=== PATIENT | female | born 1995 | race Caucasian/White ===

== ENCOUNTER 2025-03-02 09:25 | Outpatient (REF) | payer MEDICAID, SELFPAY ==
--- NOTE | ~2025-03-02 | XR_ITS ---
EXAMINATION: XR SHOULDER, RIGHT CLINICAL INFORMATION: pain, chronic COMPARISON: None available. TECHNIQUE: AP external rotation, Grashey, scapular Y, and axillary views of the right shoulder. FINDINGS: Normal bone mineralization. No fracture, dislocation, or suspicious bone lesion. Normal alignment. The glenohumeral joint is normal. The AC joint demonstrates mild superior surface spurring. There is a type 2 acromion. No undersurface spurring. The subacromial space is preserved. Remainder of the soft tissue and bony structures appear normal. XR/XR shoulder RT min 2V IMPRESSION: 1. Mild AC joint arthritis. Otherwise normal exam. Electronically signed by: Pritesh Aguilera MD 03/02/2025 10:47 AM EDT
--- OUTSIDE RECORDS SUMMARY | 2025-03-02 09:47 | XMS_ITS | Clinical Summary ---
Author Organization [facility] ity Address [address] [place] [address] Care Team Providers Care [employer] Name Role Phone Unavailable Primary Care Provider Unavailabl e Surgical History Surgery Date Site/Laterality Comments OTHER SURGICAL HISTORY PROCEDURE: DENIES PREVIOUS SURGERY OTHER SURGICAL HISTORY PROCEDURE: DENIES PREVIOUS SURGERY Medical History Medical History Date Comments Obesity 01/27/2014 DX:Obesity Family History Medical History Relation Name Comments Leukemia Maternal Grandfather Liver cancer Maternal Grandmother Other cancer Maternal Grandmother liver Leukemia Paternal Grandfather Leukemia Paternal Grandmother Other cancer Paternal Grandmother leukemi a Breast cancer Neg Hx Colon cancer Neg Hx Ovarian cancer Neg Hx Pancreatic cancer Neg Hx Uterine cancer Neg Hx Relation Name Status Comments Brother 1 Alive Brother 2 Alive Father (Age 46) Substance Abuse Maternal Grandfather Maternal Grandmother Mother Alive Paternal Grandfather Paternal Grandmother Sister Alive Social History Tobacco Use Types Packs/Day Years Used Date Smoking Tobacco: Never Smokeless Tobacco: Never Alcohol Use Standard Drinks/Week Comments Yes 0 (1 standard drink = 0.6 oz pur e alcohol) Comments Unknown Sex and Gender Information Value Date Recorded Sex Assigned at Not on file Legal Sex Female 12:19 AM EST Gender Identity Not on file Sexual Orientation Not on file Obstetrics History Plan of Treatment Health Maintenance Due Date Last Done Comments DTaP,Tdap,and Td Vaccines (1 - Tdap) 2012 Hepatitis B Vaccines (1 of 3 - 19+ 3-dose series) 2012 Cervical Cancer Screening: P ap Smear 2014 COVID-19 Vaccine ( - 2023-2 5 season) 2024 Depression Screening 07/28/2024 Influenza Vaccine (#1) 2025 HIB Vaccines Aged Out No longer eligi ble based on patient's age to complete this topic HPV Vaccines Aged Out No longer eligi ble based on patient's age to complete this topic Hepatitis A Vaccines Aged Out No long er eligible based on patient's age to complete this topic IPV Vaccines Aged Out No longer eligi ble based on patient's age to complete this topic MMR Vaccines Aged Out No longer eligi ble based on patient's age to complete this topic Meningococcal ACWY Vaccine Aged Out N o longer eligible based on patient's age to complete this topic Meningococcal B Vaccine Aged Out No l onger eligible based on patient's age to complete this topic Pneumococcal Vaccine: Pediat rics (0 to 5 Years) and At-Risk Patients (6 to 49 Years) Aged Out No longer eligible b ased on patient's age to complete this topic RSV Immunization Patients Un jerri 20 months Aged Out No longer eligible b ased on patient's age to complete this topic Varicella Vaccines Aged Out No longer eligible based on patient's age to complete this topic
[2025-03-02 11:21] LABS: MANUAL DIFF FLAG NO
[2025-03-02 11:27] LABS: Hematocrit 39.6 % (37.0-47.0); Hemoglobin 13.1 g/dl (12.0-16.0); Imm Gran Abs Auto 0.01 X10*3/uL (0.00-0.03); Imm Gran Pct Auto 0.2 % (0.0-0.4); Lymphocytes Absolute Auto 1.8 X10*3/uL (1.2-4.9); Mean Corpuscular HGB Conc 33.1 g/dl (31.0-35.0); Mean Corpuscular Hemoglobin 27.5 pg (27.0-33.0); Mean Corpuscular Volume 83.0 fL (80.0-98.0); NRBC Abs Auto 0.000 X10*3/uL (0.0-0.012); NRBC Pct Auto 0.0 /100WBC (0.0-0.2); Platelet Count 277 X10*3/uL (160-400); Red Blood Count 4.77 X10*6/uL (4.20-5.50); White Blood Count 4.7 X10*3/uL (4.8-10.8)
[2025-03-02 11:37] LABS: Hemoglobin A1C 121.5184 umol/L; Total Hemoglobin (HGBA1C) 3543.0145 umol/L
[2025-03-02 12:02] LABS: Alanine Aminotransferase 19 U/L (0-31); Albumin Level 4.4 g/dL (3.5-5.0); Alkaline Phosphatase 43 U/L (39-117); Anion Gap 10 (12-20); Aspartate Amino Transferase 22 U/L (5-31); Blood Urea Nitrogen 12 mg/dL (9-16); Calcium 8.6 mg/dL (8.4-10.2); Carbon Dioxide 28 mmol/L (22-29); Chloride 107 mmol/L (96-108); Cholesterol 156 mg/dL (<200); Estimated Glomerular Filt Rate > 60; HDL Cholesterol 39 mg/dL (>40); Potassium 3.9 mmol/L (3.3-5.1); Sodium 141 mmol/L (135-145); Total Protein 7.1 g/dL (6.5-8.0); Triglycerides 122 mg/dL (<150)
[2025-03-02 12:11] LABS: HBS Num1 9.08 mIU/mL (0-7.99); HBsAGNum1 0.42 S/CO (0.00-0.99); HIV Num 1 0.05 S/CO (0.00-0.99); Hepatitis B Surface Antigen Negative (Negative); ~HepC Num1 0.13 S/CO (0.00-0.79); ~Hepatitis C Antibody Nonreactive (Nonreactive)
[2025-03-04 08:06] LABS: HBS Num2 8.81 mIU/mL (0-7.99); HBS Num3 9.10 mIU/mL (0-7.99); ~Hepatitis B Surface Antibody GRAYZONE (Nonreactive)
== END 2025-03-02 09:26 | disposition home or self-care (01) ==
LOC: HO.HHCL 09:25
PROVIDERS: PCP Internal Medicine; Visit Provider Internal Medicine
DX: Z00.00 Encounter for general adult medical examination without abnormal findings (principal); M25.511 Pain in right shoulder; G89.29 Other chronic pain; Z11.4 Encounter for screening for human immunodeficiency virus [HIV]; Z11.59 Encounter for screening for other viral diseases
CPT/HCPCS: 36415; 73030; 80053; 80061; 82306; 83036; 84443; 85025; 86706; 86803; 87340; 87389

== ENCOUNTER → 2025-03-02 09:30 | Outpatient (BNV) | payer MEDICAID, SELFPAY | PROVIDERS: PCP Internal Medicine; Visit Provider Radiology Diagnostic Radiology | DX: M25.511 Pain in right shoulder (principal) | CPT/HCPCS: 73030 ==

== ENCOUNTER 2025-05-07 05:21 | Emergency (ER) | payer MEDICAID, SELFPAY ==
[2025-05-07 05:24] VITALS: BP 124/85; PULSE 91; RESP 18; TEMP 36.7; O2SAT 98; BMI 37.8
[2025-05-07 05:44] LABS: Hematocrit 40.8 % (37.0-47.0); Hemoglobin 14.0 g/dl (12.0-16.0); Imm Gran Abs Auto 0.01 X10*3/uL (0.00-0.03); Imm Gran Pct Auto 0.2 % (0.0-0.4); Lymphocytes Absolute Auto 1.8 X10*3/uL (1.2-4.9); MANUAL DIFF FLAG NO; Mean Corpuscular HGB Conc 34.3 g/dl (31.0-35.0); Mean Corpuscular Hemoglobin 27.3 pg (27.0-33.0); Mean Corpuscular Volume 79.7 fL (80.0-98.0); NRBC Abs Auto 0.000 X10*3/uL (0.0-0.012); NRBC Pct Auto 0.0 /100WBC (0.0-0.2); Platelet Count 310 X10*3/uL (160-400); Red Blood Count 5.12 X10*6/uL (4.20-5.50); White Blood Count 5.4 X10*3/uL (4.8-10.8)
[2025-05-07 06:00] LABS: COVID-19 Test Negative (Negative); IDNOW Serial# 55D5AD1C; IDNOW Serial# 58CA691E; Influenza B2 Negative (Negative)
[2025-05-07 06:00] LABS: Appearance Urine Clear; Glucose Urine UA Negative (Negative); PH 5.5 (5.0-9.0); Specific Gravity - Urine 1.020 (1.005-1.025); UMIC TRIGGER UACC YES
[2025-05-07 06:07] LABS: Alanine Aminotransferase 20 U/L (0-31); Albumin Level 4.9 g/dL (3.5-5.0); Alkaline Phosphatase 54 U/L (39-117); Anion Gap 14 (12-20); Aspartate Amino Transferase 22 U/L (5-31); Blood Urea Nitrogen 13 mg/dL (9-16); Calcium 9.4 mg/dL (8.4-10.2); Carbon Dioxide 21 mmol/L (22-29); Chloride 107 mmol/L (96-108); Creatinine Clr Calc Pharmacy 101.9; Estimated Glomerular Filt Rate > 60; Lipase 13 U/L (8-78); Potassium 3.3 mmol/L (3.3-5.1); Sodium 139 mmol/L (135-145); Total Protein 7.9 g/dL (6.5-8.0)
[2025-05-07 06:08] LABS: UACC Culture Trigger YES
--- NOTE | 2025-05-07 06:13 | PC.NURSE ---
PT coming from triage AOx4 chief complaint of bilateral upper quadrant ABD pain that onset x2 months ago. PT reported nausea and vomiting intermittently since the pain onset and denies diarrhea. PT reports she does not believe to be although results pending. md at bedside
[2025-05-07] MEDS: Sucralfate Oral Suspension 1 GM/10 ML ORAL.SUSP PO (06:34)
[2025-05-07] MEDS: Lidocaine HCl Viscous 2 % 15 ML SOLUTION PO (06:34)
[2025-05-07] MEDS: Magnesium Hydrox/Alum Hydrox 30 ML ORAL.SUSP PO (06:34)
--- NOTE | 2025-05-07 06:39 | ED_ITS ---
HPI - Abdominal Pain General Chief Complaint: Abdominal Pain Stated Complaint: abd pain N/V Time Seen by Provider: 05/07/25 06:11 Source: patient Mode of arrival: ambulatory Limitations: no limitations History of Present Illness ED Provider: HPI narrative: 29-year-old woman presenting with abdominal pain epigastric area and bilateral subdiaphragmatic areas for the past 2 months when she eats worse in the past week, has some episodes of nausea and vomiting, but also reported occasional sweats at night, no vaginal bleeding or discharge no dysuria. No weight loss. But reports decreased p.o. intake. Does not smoke does not drink does drink caffeine an empty stomach. Currently takes omeprazole, you yesterday took omeprazole that we will dose famotidine and Tums it did not help. Related Data Previous Rx's ?Medication ?Instructions ?Recorded Magic Mouthwash 5 ml PO TID PRN stomach upse t 7 05/07/25 Diphen/Lido/Antacid 1:1:1 240 mL days #240 mL suspension omeprazole 40 mg capsule,delayed 40 mg PO DAILY 30 day s #30 caps 05/07/25 release ondansetron 4 mg disintegrating 4 mg PO Q8H PRN nausea and 05/07/25 tablet vomiting #4 tabs sucralfate 1 gram tablet (Carafate) 1 g PO Q6H 7 days #28 tabs 05/07/25 Allergies Allergy/AdvReac Type Severity Reaction Status Date / Time No Known Allergies (No Known Allergy Verified 05/07/25 05:29 Allergies*) Review of Systems Constitutional: Reports as per [facility] Social History Social History Alcohol intake: current Alcohol intake frequency: holidays/special occasions only Alcohol type: wine Smoked in Last 30 Days: No Use of substances other than those prescribed or required for medical reasons: No Advance Directives: No Advance Directives Information Provided: No Physical Exam ED Vital Signs: Vital Signs - 24 hr 05/07/25 05:24 Temperature 98.0 F Pulse Rate 91 Respiratory Rate 18 Blood Pressure 124/85 Pulse Oximetry 98 Oxygen Delivery Method Room Air BMI result Body Mass Index 37.8 Const Other: General: ?Appears of stated age ? ?CV: RRR, no obvious murmurs appreciated ? ?Resp: ?No wheezing rales rhonchi no stridor moving air well ? Abd: ?Soft abdomen, negative Huang's sign, some epigastric and left upper quadrant discomfort, negative Rovsing's, no suprapubic tenderness, ? ?MSK: FROM, strength 5/5 all extremities ? Skin: Warm, dry, intact, ? ?Neuro: ?Alert and oriented x3, moving upper and lower extremities symmetrically, no obvious facial asymmetry noted, cranial nerves 2-12 intact Procedures Ultrasound ED POC Ultrasound: Indication:? Epigastric abdominal pain Gallbladder:? No pericholecystic fluid, no sludge or stones noted ?Sagittal GB:? No pericholecystic fluid 4 mm ?Transverse GB: No pericholecystic fluid ?Additional:? Common bile duct the proximally 3 mm Impression: Unremarkable ultrasound Medical Decision Making Medical Decision Making [facility] Narrative: Workup has been reassuring no elevation of LFTs, is negative, I am reassured by physical examination did not feel further imaging such as CT or ultrasound is indicated. Bedside ultrasound obtained without evidence of pericholecystic fluid, sludge or stones, common bile duct normal size, after patient received Maalox she was re-examined and she states that she was still having some discomfort but overall significant decrease in his symptoms, I spoke to her about biliary colic, return precautions etc. Differential Diagnosis Differential Diagnoses: The differential diagnosis associated with the presentation includes (Cholecystitis, pancreatitis, hepatitis, gastritis, cholangitis, choledocholithiasis, SBO, ) Admission/Observation Consideration of admission/observation: Escalation of care including admission/observation considered Lab Data [facility] Lab Attestation statement: I reviewed the patient's lab results. 05/07/25 05:37 05/07/25 05:37 Labs: Lab Results 05/07/25 05/07/25 Range/Units 05:37 05:49 WBC 5.4 (4.8-10.8) X10*3/uL RBC 5.12 (4.20-5.50) X10*6/uL Hgb 14.0 (12.0-16.0) g/dl Hct 40.8 (37.0-47.0) % MCV 79.7 L (80.0-98.0) fL MCH 27.3 (27.0-33.0) pg MCHC 34.3 (31.0-35.0) g/dl RDW 12.4 (11.0-16.0) % Plt Count 310 (160-400) X10*3/uL MPV 9.7 (9.4-12.3) fL Immature Gran % (Auto) 0.2 (0.0-0.4) % Neut % (Auto) 54.0 (45-73) % Lymph % (Auto) 32.6 (20-40) % Kane % (Auto) 10.1 (2-11) % Eos % (Auto) 2.4 (0-4) % Baso % (Auto) 0.7 (0-2) % Lymph # (Auto) 1.8 (1.2-4.9) X10*3/uL Kane # (Auto) 0.6 (0.1-1.2) X10*3/uL Eos # (Auto) 0.1 (0.0-0.4) X10*3/uL Baso # (Auto) 0.0 (0.0-0.2) X10*3/uL Abs Immat Gran (auto) 0.01 (0.00-0.03) X10*3/uL Absolute Neuts (auto) 2.9 (2.0-8.3) x10*3/uL Absolute Nucleated RBC 0.000 (0.0-0.012) X10*3/uL Nucleated RBC % (auto) 0.0 (0.0-0.2) /100WBC Sodium 139 (135-145) mmol/L Potassium 3.3 (3.3-5.1) mmol/L Chloride 107 (96-108) mmol/L Carbon Dioxide 21 L (22-29) mmol/L Anion Gap 14 (12-20) BUN 13 (9-16) mg/dL Creatinine 1.02 (0.5-1.4) mg/dL Estim Creat Clear Calc 101.9 Estimated GFR > 60 Random Glucose 109 (60-115) mg/dL Calcium 9.4 D (8.4-10.2) mg/dL Total Bilirubin 1.4 H (0.0-1.0) mg/dL AST 22 (5-31) U/L ALT 20 (0-31) U/L Alkaline Phosphatase 54 (39-117) U/L Total Protein 7.9 (6.5-8.0) g/dL Albumin 4.9 (3.5-5.0) g/dL Lipase 13 (8-78) U/L Beta HCG, Quant < 2 mIU/mL Urine Color Yellow Urine Appearance Clear Urine pH 5.5 (5.0-9.0) Ur Specific [place] 1.020 (1.005-1.025) Urine Protein Negative (Neg-Trace) mg/dL Urine Glucose (UA) Negative (Negative) mg/dL Urine Ketones 15 (Negative) mg/dL Urine Blood Negative (Negative) Urine Nitrite Negative (Negative) Ur Leukocyte Esterase Moderate (2+) H (Negative) Urine RBC 0-2 (0-2) /HPF Urine WBC 11-20 H (0-5) /HPF Ur Squamous Epith Cells 6-10 (0-2) /HPF Urine Bacteria Trace (None Seen) Hyaline Casts 0-2 (0-2) /LPF COVID-19 (YUE) Negative (Negative) COVID-19 Clin Com See Note Influenza Type A (RIO) Negative (Negative) Influenza Type B (RIO) Negative (Negative) Influenza A & B Note See Note Prescription Management I considered prescription management with: Pain Medication Medications Administered Discontinued Medications Generic Name Dose Route Start Last Admin Trade Name Freq PRN Reason Stop Dose Admin Al Hydroxide/Mg Hydroxide 30 ml 05/07/25 06:24 05/07/25 06:34 Magnesium Hydrox/Alum Hydrox 30 Ml Oral.Susp PO 05/07/25 06:25 30 ml ONCE ONE Administration Lidocaine HCl 15 ml 05/07/25 06:24 05/07/25 06:34 Lidocaine Hcl Viscous 2 % 15 Ml Solution PO 05/07/25 06:25 15 ml ONCE ONE Administration Ondansetron HCl 4 mg 05/07/25 06:24 05/07/25 06:34 Ondansetron Odt 4 Mg Tab.Rapdis TRANSLINGU 05/07/25 06:25 4 mg ONCE ONE Administration Sucralfate 1 gm 05/07/25 06:24 05/07/25 06:34 Sucralfate Oral Suspension 1 Gm/10 Ml Oral.Susp PO 05/07/25 06:25 1 gm ONCE ONE Administration Discharge Plan Discharge Clinical Impression: Abdominal pain, epigastric Patient Disposition: Home, Self-Care Additional Instructions: As discussed my clinical impression based on your physical examination, your symptoms, bedside ultrasound, your blood work is that you were having irritation of the stomach, the other consideration is whether you have biliary colic, I recommend that you adjust your diet for the next week, all the things that we discussed but also making sure your avoid fatty greasy spicy food as well, use Carafate 20 minutes before any meals, Zofran as needed for nausea and vomiting, omeprazole to 40 mg daily, and no food 2 hours before bedtime, follow up with your PCP, worsening symptoms, persistent pain,, persistent nausea come back to the emergency department, that point I would recommend an official gallbladder study and clinical re-evaluation. Prescriptions: New sucralfate [Carafate] 1 gram tablet 1 g PO Q6H 7 Days Qty: 28 0RF ondansetron 4 mg tablet,disintegrating 4 mg PO Q8H PRN (Reason: nausea and vomiting) Qty: 4 0RF omeprazole 40 mg capsule,delayed release(DR/EC) 40 mg PO DAILY 30 Days Qty: 30 0RF Magic Mouthwash Diphen/Lido/Antacid 1:1:1 240 mL suspension 5 ml PO TID PRN (Reason: stomach upset) 7 Days Qty: 240 0RF Rx Instructions: Lidocaine Viscous 2 % 80mL; diphenhydramine 12.5 mg/5 mL 80mL; aluminum-mag hydrox-simeth [id number]/5mL 80mL Print Language: Latvian
--- OUTSIDE RECORDS SUMMARY | 2025-05-07 06:49 | XMS_ITS | Clinical Summary ---
Author Organization [employer] Address [address] [place] [address] Care Team Providers Care Rouge Sifter And Miller Name Role Phone Quiana Hughes MD Primary Care Provide r Allergies No known active allergies Medications Vitamin D High Potency 25 MCG (1000 UT) capsuleIndication s:Vitamin D insufficiency TAKE ONE CAPSULE BY MOUTH EVERY DAY 90 capsule 1 3 Active fluticasone (Flonase) 50 MCG/ACT nasal sprayIndications: Subacute maxillary sinusitis Administer 1 spray into each nostril in the morning. 16 g 3 Active cetirizine (ZyrTEC) 10 MG tabletIndications :Subacute maxillary sinusitis Take 1 tablet (10 mg) by mouth in the morning. 30 tablet 3 Active omeprazole (PriLOSEC) [address] capsuleIndication s:Dyspepsia TAKE 1 CAPSULE BY MOUTH EVERY DAY BEFORE MEALS 30 capsule 2 5 Active Active Problems Problem Noted Date Diagnosed Date Encounter for preventive care 02/28/2025 Assessment & Plan (02/28/2025 2:33 PM EDT): See HPI Chronic right shoulder pain 02/28/2025 Assessment & Plan (04/27/2025 1:36 PM EDT): She may take acetaminophen as needed She may do gentle exercise for her shoulder and follow-up with orthopedics Elevated blood pressure reading 01/21/2025 Assessment & Plan (01/21/2025 2:05 PM EDT): Has home bp cuff, reassuring bp and cardiac exam in office today, Focus on lifestyle, Due to fh of cardiomyopathy referral to cardiology Follow with pcp should bp increase, or in 3 months to reassess lifestyle interventions Reviewed low sodium walking for 30 minutes per day Reduce etoh, and pt is non smoker Family history of cardiomyopathy 01/21/2025 Subacute maxillary sinusitis 10/14/2022 Assessment & Plan (10/14/2022 9:06 PM EDT): Augmentin x 7d + Zyrtec + Fluticasone + NS. Out of work x 2d Increase water intake Encounters Date Type Department Care Team Description 04/27/2025 10:30 AM EDT Telemedicine [address] [address] Quiana Hughes MD Chronic right shoulder pain; Dietary counseling; Exercise counseling 04/26/[address] [address] Quiana Hughes MD Chart Prep 04/20/2025 Travel 03/02/2025 Results Follow-Up [address] [address] Quiana Hughes MD XR Shoulder 2+ Views Right 02/28/2025 9:15 AM EDT Office Visit [address] [address] Quiana Hughes MD Encounter for preventive care (Primary Dx); Dyspepsia; Chronic right shoulder pain 02/28/2025 Travel 02/25/[address] [address] Quiana Hughes MD chart prep 02/21/2025 Patient Outreach [facility] [address] [place], [place] [phone] Quiana Hughes MD Pre-visit Planning (SDOH unable to reach LVM ) from Last 3 Months Social History Tobacco Use Types Packs/Day Years Used Date Smoking Tobacco: Never Assessed Depression Answer Date Recorded Patient Health Questionnaire-9 Score 0 02/28/2025 Patient Health Questionnaire-9 Score 0 02/28/2025 Last PHQ-9: Questionnaire Data Not on file 0 02/28/2025 Housing Stability Answer Date Recorded What is your housing situation today? I have esme mendez 02/28/[address] you li ve. Do you have problems with any of the following? None of the above 02/28/2025 Food Insecurity Answer Date Recorded Within the past 12 months, y ou worried that your food would run out before you got money to buy more: Never True 02/28/2025 Within the past 12 months,th e food you bought just didn't last and you didn't have enough money to get more: Never True 10/2024 Transportation Answer Date Recorded In the past 12 months, has l ack of transportation kept you from medical appts, meetings, work or from getting things needed for daily living? No 02/28/2025 Utilities Answer Date Recorded In the past 12 months, has t he electric, gas, oil or water company threatened to shut off services in your home? No 02/28/2025 Depression Answer Date Recorded Patient Health Questionnaire-2 Score 0 02/28/2025 Internet Access Answer Date Recorded Internet Access Q1 No 02/28/2025 Internet Access Q2 I do not want or need it 10/2024 Comments No Sex and Gender Information Value Date Recorded Sex Assigned at Female 05/27/2022 10:35 AM EDT Legal Sex Female 10:35 AM EDT Gender Identity Female 05/27/2022 10:35 AM EDT Sexual Orientation Choose not to disclose 2021 10:35 AM EDT Last Filed Vital Signs Vital Sign Reading Time Taken Comments Blood Pressure 120/76 02/28/2025 9:23 AM EDT Pulse 98 02/28/2025 9:23 AM EDT Temperature 36.7 C (98.1 F) 02/28/2025 9:23 AM EDT Respiratory Rate 18 02/28/2025 9:23 AM EDT Oxygen Saturation 99% 01/21/2025 1:51 PM EDT Inhaled Oxygen Concentration - - Weight 113 kg (250 lb 3.2 oz) 02/28/2025 9:23 AM EDT Height 172.7 cm (5' 8 ) 02/28/2025 9:23 AM EDT Body Mass Index 38.04 02/28/2025 9:23 AM EDT Plan of Treatment Health Maintenance Due Date Last Done Comments Tobacco Screening 2005 Family Planning (PISQ) 2008 HPV Vaccines (1 - 3-dose series) 2008 DTaP/Tdap/Td Vaccines (1 - Tdap) 2012 Pap Smear 2014 Hepatitis B Vaccines (2 of 3 - 19+ 3-dose series) 08/27/2017 07/30/2017 Cervical Cancer Screening 2023 HPV/Cotest 2023 COVID-19 Vaccine ( - 2024- season) 2025 04/17/2021, 03/27/2021 Influenza Vaccine (#1) 2025 , 05/24/2023, 05/17/2022, Additional history exists Alcohol/Substance Use Screening 02/28/2026 02/28/2025 Depression Screening 02/28/2026 02/28/2025, 02/29/20 25 Disability Screening 02/28/2026 02/28/2025 SDOH Screening 02/28/2026 02/28/2025 Lipid Panel 03/02/2030 03/02/2025, 08/17/2020 Zoster Vaccines (1 of 2) 2043 RSV Patients and Patients Aged 60 years or older (1 - 1-dose 75+ series) 2068 HIV Screening Completed 03/02/2025 Hepatitis C Screening Completed 03/02/2025 HIB Vaccines Aged Out No longer eligi [...] patient's age to complete this topic Meningococcal Vaccine Aged Out No ita chelly eligible based on patient's age to complete this topic Pneumococcal Vaccine: Pediatrics (0 to 5 Years) and At-Risk Patients (6 to 49) Years Aged Out No longer eligible based on patient's age to complete this topic RSV under 20 months Aged Out No longe r eligible based on patient's age to complete this topic Rotavirus Vaccines Aged Out No longer eligible based on patient's age to complete this topic Procedures Procedure Name Priority Date/Time Associated Diagnosis Comments HEPATITIS B SURFACE ANTIGEN, EIA Routine 03/02/2025 9:51 AM EDT Encounter for preventive care HEPATITIS B SURFACE ANTIBODY, QUALITATIVE Routine 03/02/2025 9:51 AM EDT Encounter for preventive care TSH W/REFLEX TO FT4 Routine 03/02/2025 9 :51 AM EDT Encounter for preventive care VITAMIN D,25-OH,TOTAL,IA Routine 03/02/2025 9:51 AM EDT Encounter for preventive care LIPID PANEL, STANDARD Routine 03/02/2025 9:51 AM EDT Encounter for preventive care HEPATITIS C AB W/REFL TO HCV RNA, QN, PCR Routine 03/02/2025 9:51 AM EDT Encounter for preventive care HIV 1/2 ANTIGEN/ANTIBODY, FOURTH GENERATION W/RFL Routine 03/02/2025 9:51 AM EDT Encounter for preventive care HEMOGLOBIN A1C Routine 03/02/2025 9:51 AM EDT Encounter for preventive care COMPREHENSIVE METABOLIC PANEL Routine 03/02/2025 9:51 AM EDT Encounter for preventive care CBC WITH AUTO DIFFERENTIAL Routine 03/02/2025 9:51 AM EDT Encounter for preventive care XR SHOULDER 2+ VIEWS RIGHT Routine 03/02/2025 8:56 AM EDT Chronic right shoulder pain from Last 3 Months Results * Vitamin D, 25-Hydroxy, Total, Immunoassay (03/02/2025 9:51 AM EDT) Vitamin D 25-OH Total 30.7 >30 ng/mL [facility] Comment: Health Based Reference Values*< 20 ng/mL Xkcvhvxut57-60 ng/mL Insufficient> 30 ng/mL Sufficient*Edil JONES. N Engl J Med. 2007;357:266-280There is no well-established upper level of normal vitamin Dlevels. Some laboratories use 50 ng/mL as an upper limit ofnormal. However, toxicity is patient-dependent and may occurat any level. Careful correlation with the patient'spresentation is necessary and, if there is concern forvitamin D toxicity, treatment should be consideredirrespective of the serum level.Care must be taken in interpreting Vitamin D results fromdifferent laboratories and methodologies. Published datademonstrated that results from patients undergoinghemodialysis may show a negative bias when tested withvarious automated 25-OH vitamin D assays when compared toLC-MS/MS.When testing samples from patients whose predominant form ofVitamin D is Vitamin D2, such as patients receiving VitaminD2 supplementation, results that are subtherapeutic shouldbe confirmed with another method such as LC-MS/MS. Blood Venous blood specimen / Unknown 03/02/2025 9:51 AM EDT 03/02/2025 11:14 AM EDT us Quiana Meeks MD LAB BLOOD ORDERABLES Final Result Performing Organization Address City/[facility]/ZIP Co de Phone Number [facility] [address] [place] [phone] * TSH with Reflex to Free T4 (03/02/2025 9:51 AM EDT) TSH reflex Free T4 1.39 0.32 - 4.0 uIU/mL [facility] Blood Venous blood specimen / Unknown 03/02/2025 9:51 AM EDT 03/02/2025 11:14 AM EDT us Quiana Meeks MD LAB BLOOD ORDERABLES Final Result Performing Organization Address City/[facility]/ZIP Co de Phone Number [facility] [address] [place] [phone] * (ABNORMAL) CBC auto differential (03/02/2025 9:51 AM EDT) White Blood Count 4.7(L) 4.8 - 10.8 X10*3/uL [facility] Red Blood Count 4.77 4.20 - 5.50 X10*6/uL [facility] Hemoglobin 13.1 12.0 - 16.0 g/dl [facility] Hematocrit 39.6 37.0 - 47.0 % [facility] Mean Corpuscular Volume 83.0 80.0 - 98.0 fL [facility] Mean Corpuscular Hemoglobin 27.5 27.0 - 33.0 pg [facility] Mean Corpuscular HGB Conc 33.1 31.0 - 35.0 g/dl [facility] Red Cell Distribution Width 12.9 11.0 - 16.0 % [facility] Platelet Count 277 160 - 400 X10*3/uL [facility] Mean Platelet Volume 11.0 9.4 - 12.3 fL [facility] Neutrophils Percent Auto 49.5 45 - 73 % [facility] Imm Gran Pct Auto 0.2 0.0 - 0.4 % [facility] Lymphocytes Percent Auto 37.9 20 - 40 % [facility] Monocytes Percent Auto 7.4 2 - 11 % [facility] Eosinophils Percent Auto 4.4(H) 0 - 4 % [facility] Basophils Percent Auto 0.6 0 - 2 % [facility] NRBC Pct Auto 0.0 0.0 - 0.2 /100WBC [facility] Neutrophils Absolute Auto 2.3 2.0 - 8.3 x10*3/uL [facility] Imm Gran Abs Auto 0.01 0.00 - 0.03 X10*3/uL [facility] Lymphocytes Absolute Auto 1.8 1.2 - 4.9 X10*3/uL [facility] Monocytes Absolute Auto 0.4 0.1 - 1.2 X10*3/uL [facility] Eosinophils Absolute Auto 0.2 0.0 - 0.4 X10*3/uL [facility] Basophils Absolute Auto 0.0 0.0 - 0.2 X10*3/uL [facility] NRBC Abs Auto 0.000 0.0 - 0.012 X10*3/uL [facility] Blood Venous blood specimen / Unknown 03/02/2025 9:51 AM EDT 03/02/2025 11:14 AM EDT us Quiana Meeks MD LAB BLOOD ORDERABLES Final Result Performing Organization Address City/[facility]/ZIP Co de Phone Number [facility] [address] [place] [phone] * Hepatitis C Antibody with Reflex to HCV, RNA, Quantitative, Real-Time PCR (03/02/2025 9:51 AM EDT) Hepatitis C Antibody Nonreactive Nonreactive [facility] Comment:Antibodies to HCV no t detected; does not exclude early acuteHCV infection. Blood Venous blood specimen / Unknown 03/02/2025 9:51 AM EDT 03/02/2025 11:14 AM EDT us Quiana Meeks MD LAB BLOOD ORDERABLES Final Result Performing Organization Address [facility] Co de Phone Number [facility] [address] [place] [phone] * Hepatitis B surface antigen, EIA (03/02/2025 9:51 AM EDT) Hepatitis B Surface Ag Negative Negative [facility] Blood Venous blood specimen / Unknown 03/02/2025 9:51 AM EDT 03/02/2025 11:14 AM EDT us Quiana Meeks MD LAB BLOOD ORDERABLES Final Result Performing Organization Address City/[facility]/ZIP Co de Phone Number [facility] [address] [place] [phone] * HIV-1/2 Antigen and Antibodies, Fourth Generation, with Reflexes (03/02/2025 9:51 AM EDT) Pathologist [facility] HIV AB/AG Nonreactive Nonreactive [facility] Comment:HIV-1 p24 Ag and/or HIV-1/HIV-2 Ab not detected.A test result that is nonreactive does not exclude thepossibility of exposure to or infection with HIV-1 and/orHIV-2. Nonreactive results in this assay for individualswith prior exposure to HIV-1 and/or HIV-2 may be due toantigen and antibody levels that are below the limit ofdetection of this assay.The [employer] HIV Ag/Ab Combo assay result andsupplemental assay results should be interpreted inconjunction with the patient's clinical presentation,history and other laboratory results. If the results areinconsistent with clinical evidence, additional testing issuggested to confirm the result. Blood Venous blood specimen / Unknown 03/02/2025 9:51 AM EDT 03/02/2025 11:14 AM EDT us Quiana Meeks MD LAB BLOOD ORDERABLES Final Result [facility] [address] [place] [phone] * Hepatitis B Surface Antibody, Qualitative (03/02/2025 9:51 AM EDT) [facility] ~Hepatitis B Surface Antibody GRAYZONE Nonreactive [facility] Comment:GRAYZONE: 8.00 mIU/m L TO 11.99 mIU/mLTHE IMMUNE STATUS OF THE INDIVIDUAL SHOULD BE FURTHERASSESSED BY CONSIDERING OTHER FACTORS, SUCH CLINICALSTATUS, FOLLOW-UP TESTING, ASSOCIATED RISK FACTORS, AND THEUSE OF ADDITIONAL DIAGNOSTIC INFORMATION. Blood Venous blood specimen / Unknown 03/02/2025 9:51 AM EDT 03/02/2025 11:14 AM EDT us Quiana Meeks MD LAB BLOOD ORDERABLES Final Result Performing Organization Address [facility]/ZIP Co de Phone Number [facility] [address] [place] [phone] * Hemoglobin A1c (03/02/2025 9:51 AM EDT) Hemoglobin A1c 5.3 <6.0 % [facility] Comment:Hemoglobin A1C Refer ence Range Adults: 4.8 - 6.0 % Non diabetic: < 6.0 % Goal: < 7.0 %Additional Action Suggested: > 8.0 %Note: Hemoglobin A1c results are invalid for patients with abnormal amounts of HbF. Blood transfusions may impact the HbA1c concentration in the patient sample. Estimated Average Glucose 105 mg/dL [facility] Comment:eAG = Estimated ave rage glucose which is %A1C expressed asaverage glucose, using the formula of the Q1S-OlsixbgObpdazx Glucose study (ADAG), Diabetes Care, Vol.31,#8,Feb. 2007 Blood Venous blood specimen / Unknown 03/02/2025 9:51 AM EDT 03/02/2025 11:14 AM EDT Quiana Meeks MD LAB BLOOD ORDERABLES Final Result Performing Organization Address City/[facility]/ZIP Co de Phone Number [facility] [address] [place] [phone] * (ABNORMAL) Lipid Panel, Standard (03/02/2025 9:51 AM EDT) Triglycerides 122 <150 mg/dL [facility] Comment:Desirable Triglyceri de: less than 150 mg/dLBorderline High Triglyceride 150-199 mg/dLHigh Triglyceride: 200-499 mg/dLVery High Triglyceride: greater than or equal to 5OO mg/dL Cholesterol 156 <200 mg/dL [facility] Comment:Desirable Cholestero l: less than 200 mg/dLBorderline High Cholesterol: 200-239 mg/dLHigh Cholesterol: greater than 239 mg/dL LDL Cholesterol Calculated 93 <100 mg/dL [facility] Comment:Desirable LDL: less than 100 mg/dLNear Optimal/Above Optimal LDL: 110- 129 mg/dLBorderline High LDL: 130-159 mg/dLHigh LDL: 160-189 mg/dLVery High LDL: greater than or equal to 190 mg/dL HDL Cholesterol 39(L) >40 mg/dL [facility] Comment:Desirable HDL: great er than 40 mg/dL Note: This HDL assay may give artificially low results in patients with liver disease. Blood Venous blood specimen / Unknown 03/02/2025 9:51 AM EDT 03/02/2025 11:14 AM EDT us Quiana Meeks MD LAB BLOOD ORDERABLES Final Result [facility] [address] [place] [phone] * (ABNORMAL) Comprehensive Metabolic Panel (03/02/2025 9:51 AM EDT) Sodium 141 135 - 145 mmol/L [facility] Potassium 3.9 3.3 - 5.1 mmol/L [facility] Chloride 107 96 - 108 mmol/L [facility] Carbon Dioxide 28 22 - 29 mmol/L [facility] Anion Gap 10(L) 12 - 20 [facility] Urea Nitrogen (BUN) 12 9 - 16 mg/dL [facility] Creatinine, Serum 1.01 0.5 - 1.4 mg/dL [facility] Estimated Glomerular Filt Rate >60 [facility] Comment:Chronic Kidney Disea se: Estimated GFR < 60 mL/min/1.62w6Mfkeoc Kidney Disease: Estimated GFR < 15 mL/min/1.73m2 Glucose 97 60 - 115 mg/dL [facility] Calcium 8.6 8.4 - 10.2 mg/dL [facility] Bilirubin, Total 0.8 0.0 - 1.0 mg/dL [facility] Aspartate Amino Transferase 22 5 - 31 U/L [facility] Alanine Aminotransferase 19 0 - 31 U/L [facility] Total Protein 7.1 6.5 - 8.0 g/dL [facility] Albumin Level 4.4 3.5 - 5.0 g/dL [facility] Alkaline Phosphatase 43 39 - 117 U/L [facility] Blood Venous blood specimen / Unknown 03/02/2025 9:51 AM EDT 03/02/2025 11:14 AM EDT Quiana Meeks MD LAB BLOOD ORDERABLES Final Result [facility] [address] [place] [phone] * XR Shoulder 2+ Views Right (03/02/2025 8:56 AM EDT) Anatomical Region Laterality Modality Upper Extremities, Shoulder Right Radi ographic Imaging 03/02/2025 8:56 AM EDT Narrative 03/02/2025 10:50 AM EDT [address] [address] XRay Report Signed Patient: Alla Huang MR#: [id number] : 1995 Acct:[id number] Age/Sex: 29 / F ADM Date: 03/02/25 Loc: [facility] Attending Dr: Quiana Meeks MD Ordering Physician: Quiana Hughes MD Date of Service: 03/02/25 Procedure(s): XR shoulder RT min 2V Accession Number(s): [id number] cc: Quiana Hughes MD EXAMINATION: XR SHOULDER, RIGHT CLINICAL INFORMATION: pain, chronic COMPARISON: None available. TECHNIQUE: AP external rotation, Grashey, scapular Y, and axillary views of the right shoulder. FINDINGS: Normal bone mineralization. No fracture, dislocation, or suspicious bone lesion. Normal alignment. The glenohumeral joint is normal. The AC joint demonstrates mild superior surface spurring. There is a type 2 acromion. No undersurface spurring. The subacromial space is preserved. Remainder of the soft tissue and bony structures appear normal. XR/XR shoulder RT min 2V IMPRESSION: 1. Mild AC joint arthritis. Otherwise normal exam. Electronically signed by: Pritesh Aguilera MD 03/02/2025 10:47 AM EDT RP Dictated By: Pritesh Aguilera MD Signed By: <Electronically signed by Pritesh Aguilera MD in OV> 03/02/25 1047 DD/ 5 TD/TT: 03/02/25 09 Supervisor Asbestos Removal: Procedure Note Donotuseinterpreter, Image - 03/02/[address] [address] XRay Report Signed Patient: Alla Huang LMR#: [id number] : 1995Acct:[id number] Age/Sex: 29 FADM Date: 03/02/25 Loc: [facility] Attending Dr: Quiana Meeks MD Ordering Physician: Quiana Hughes MD Date of Service: 03/02/25 Procedure(s): XR shoulder RT min 2V Accession Number(s): [id number] cc: Quiana Hughes MD EXAMINATION: XR SHOULDER, RIGHT CLINICAL INFORMATION: pain, chronic COMPARISON: None available. TECHNIQUE: AP external rotation, Grashey, scapular Y, and axillary views of the right shoulder. FINDINGS: Normal bone mineralization. No fracture, dislocation, or suspicious bone lesion. Normal alignment. The glenohumeral joint is normal. The AC joint demonstrates mild superior surface spurring. There is a type 2 acromion. No undersurface spurring. The subacromial space is preserved. Remainder of the soft tissue and bony structures appear normal. XR/XR shoulder RT min 2V IMPRESSION: 1. Mild AC joint arthritis. Otherwise normal exam. Electronically signed by: Pritesh Aguilera MD 03/02/2025 10:47 AM EDT RP Dictated By: Pritesh Aguilera MD Signed By: <Electronically signed by Pritesh Aguilera MD in OV> 03/02/25 1047 DD/ TD/TT: 03/02/25 09 Supervisor Asbestos Removal: Quiana Meeks MD IMG XR PROCEDURES Fin al Result from Last 3 Months Insurance [facility] STANDARD Care Teams Rouge Sifter And Miller Relationship Specialty Start Date End Date Quiana Hughes MD [address] [place] [address] PCP - General Family Medicine 10/23/18
--- OUTSIDE RECORDS SUMMARY | 2025-05-07 06:49 | XMS_ITS | Clinical Summary ---
Author Organization [facility] ity Address [address] [place] [address] Care Team Providers Care Photogrammetric Compilation Specialist Name Role Phone Unavailable Primary Care Provider [...] Cervical Cancer Screening: P ap Smear 2014 HPV Vaccines (1 - 3-dose SCD M series) 2020 Depression Screening 07/28/2024 COVID-19 Vaccine ( - 2024-2 5 season) 2025 Influenza Vaccine (#1) 2025 RSV Immunization Adult Patie nts (1 - 1-dose 75+ series) 2068 HIB Vaccines Aged Out No longer eligi [...]
[2025-05-07 07:08] VITALS: BP 121/70; PULSE 60; RESP 18; O2SAT 98
[2025-05-07 07:09] VITALS: BP 121/70; PULSE 60; RESP 18; TEMP 36.6; O2SAT 98
== END 2025-05-07 07:10 | disposition home or self-care (01) ==
PROVIDERS: Emergency Provider Emergency Medicine; PCP Internal Medicine
DX: R10.13 Epigastric pain (principal); R11.2 Nausea with vomiting, unspecified; Z11.52 Encounter for screening for COVID-19; Z79.899 Other long term (current) drug therapy
CPT/HCPCS: 80053; 81001; 81003; 83690; 84702; 85025; 87086; 87147; 87502; 87635; 99283; 99284

== ENCOUNTER 2025-05-31 08:53 | Outpatient (AMB) | payer MEDICAID, SELFPAY ==
--- NOTE | 2025-05-31 08:53 | MHC.OFFVIS ---
Vital Signs 05/31/25 08:54 Height 5 ft 7 in Weight 244 lb 11.41 oz BMI 38.3 BP 118/78 Blood Pressure Location Lt brachial Position Sitting Pulse 77 Intake Visit Reasons: [employer]/ Gretel Gillis/ family hx cardiomyopathy Intake Note: New patient dx fx cmp sister passed after child c/o some palpitations and elevated bp Tent Worker Required: No Tumble Tailstock Turret Lathe Operator: Tumble Tailstock Turret Lathe Operator Present Accompanied by: Spouse Allergies No Known Allergies (No Known Allergies*) Allergy (Verified 05/07/25 05:29) Medication List - Last Reconciled 05/31/25 by Jeovanny Leach MD omeprazole 40 mg PO DAILY 30 days HPI Comments Details: Alla was referred for cardiology evaluation because of symptoms of fluttering in his chest/palpitations, having peripartum cardiomyopathy in his sister as well as recent hypotension. She said she is worried about heart disease as her sister had cardiomyopathy post of her child and 3 months later. She herself with a child that he is 12 years old. She has never had any other cardiac symptoms however recently during the summer months she started noticing that her blood pressure is running high on a pre gym workout which was unusual for her. Since then she has modified her lifestyle by walking regularly, lowering her salt intake and trying to lose weight. Since then her blood pressure has normalized. She also has symptoms of fluttering in his chest which happen about once a month and last for short period time. Symptoms are not very bothersome to her lifestyle. She denies any exertional chest pain, shortness of breath, orthopnea, PND, leg edema, lightheadedness, syncope. No prolonged irregular heartbeat or palpitations. She has cut down her caffeine intake. She does not drink much alcohol. No other substance abuse. Denies any wgyc-jpw-sjeblli medications. Recent changes in her health. [facility] Surgical History Hx of wisdom tooth extraction Family History Father No problems noted. Mother HTN (hypertension) Hyperlipemia Sister Cardiomyopathy Social History Alcohol intake: current Alcohol intake frequency: holidays/special occasions only Alcohol type: wine Patient Tobacco Use Status: Never used Tobacco Review of Systems Const Denies chills, Denies daytime sleepiness, Reports fatigue, Denies fever(s), Denies frequent falls, Denies poor appetite, Denies snoring, Denies stops breathing during sleep, Denies weakness, Denies weight gain and Denies weight loss Eyes Denies loss of vision ENT Denies dizziness and Denies hearing loss Card Reports chest pain, Denies claudication, Denies leg edema, Denies lightheadedness, Reports palpitations, Denies dyspnea, Denies dyspnea on exertion and Denies orthopnea Resp Denies cough, Denies excessive phlegm production, Denies dyspnea, Denies dyspnea on exertion, Denies snoring and Denies wheezing GI Denies abdominal pain, Denies hematochezia, Denies change in bowel habits, Denies nausea and Denies vomiting Denies urinary frequency and Denies dysuria Musc Reports arthralgias, Denies muscle weakness and Denies numbness Skin/Breast Denies nail changes and Denies rash Neuro Denies Abnormal speech present, Denies dizziness, Denies frequent falls, Denies loss of vision, Denies memory loss, Denies numbness and Denies weakness Psych Denies depression and Denies memory loss Endo Reports fatigue and Reports palpitations Cristian/Lymph Reports easy bruising and Reports other (anemia) Aller/Immun Denies wheezing Physical Exam Vital Signs: Last Vital Signs Pulse 77 05/31/25 08:54 BP 118/78 05/31/25 08:54 BMI result Body Mass Index 38.3 Const General: cooperative, comfortable, no acute distress, alert and awake Nutritional Appearance: obese Orientation/consciousness: patient oriented x3 Limitations: no limitations HEENT Head: Yes normocephalic and Yes atraumatic Neck Neck: Yes trachea midline, Yes supple and Yes no JVD Resp Effort & Inspection: normal respiratory effort Auscultation: clear to auscultation bilaterally Cardio Jugular venous distension: no JVD Rate: regular rate Rhythm: regular rhythm Heart sounds: S1 normal heart sound present, S2 normal heart sound present, no click, no gallops, no murmurs and no rubs GI Auscultation: normal bowel sounds Skin General skin exam: no rashes or lesions noted Neuro General: patient oriented x3 and no focal motor deficits Speech: No Abnormal speech present Extrem General: Yes no clubbing, cyanosis or edema Psych Appearance: grossly normal Office Procedures EKG Details: EKGs shows normal sinus rhythm with right atrial enlargement which could be a normal variant. [id number], Complete Assessment & Plan Assessment & Plan (1) Palpitations: Code(s): R00.2 - Palpitations Plan: Patient was symptoms of fluttering in chest which is very infrequent and happens once a month in his not bothersome to her. We discussed potential etiology being extra systoles such as PVCs or PACs. These are infrequent and would not affect her long-term prognosis and this was discussed with her. Potential triggering factors were discussed with her. She understands. She also had hypertension and she modified her lifestyle significantly and that has led to significant improvement in overall blood pressure control. Discussed with her to continue to maintain her aggressive lifestyle modification as well as participate in aggressive weight loss program. Family history of cardiomyopathy with a systolic peripartum cardiomyopathy. This less likely is genetic. This was discussed with her. Will obtain echocardiogram to assess for cardiac structure and function. Follow up in the clinic if need be. Thank you for allowing me to partake in her care Orders: Orders CA echo transthoracic complete Today R00.2 - Palpitations Medications: Discontinued Magic Mouthwash Diphen/Lido/Antacid 1:1:1 Lidocaine Viscous 2 % 80mL; diphenhydramine 12.5 mg/5 mL 80mL; aluminum-mag hydrox-simeth [id number]/5mL 80mL Discontinued Reason: Patient Completed Course 5 mL PO TID 7 days PRN 240 mL 0RF stomach upset ondansetron Discontinued Reason: Patient Refused 4 mg PO Q8H PRN 4 tabs 0RF nausea and vomiting sucralfate (Carafate) Discontinued Reason: Patient Completed Course 1 g PO Q6H 7 days 28 tabs 0RF Coding Level of Care Code New Pt Level 3 (03135) Complex EM visit Add On G2211 Diagnoses Palpitations R00.2 CPT Codes EKG - CPT: 35239-[id number], Complete ([id number])
[2025-05-31 08:54] VITALS: BP 118/78; PULSE 77; BMI 38.3
--- OUTSIDE RECORDS SUMMARY | 2025-05-31 09:29 | XMS_ITS | Clinical Summary ---
Author Organization [facility] [employer] Address [address] [place] [address] Care Team Providers Care Special Delivery Messenger Name Role Phone Quiana Hughes MD Primary [...] Team Description 04/27/2025 10:30 AM EDT Telemedicine [address] [address] Quiana Hughes MD Chronic right shoulder pain; Dietary counseling; Exercise counseling 04/26/[address] [address] Quiana Hughes MD Chart Prep 04/20/2025 Travel 03/02/2025 Results Follow-Up [address] [address] Quiana Hughes MD XR Shoulder 2+ Views Right 02/28/2025 9:15 AM EDT Office Visit [address] [address] Quiana Hughes MD Encounter for preventive care (Primary Dx); Dyspepsia; Chronic right shoulder pain 02/28/2025 Travel from Last 3 Months Social History Tobacco [...] Cancer Screening 2023 HPV/Cotest 2023 COVID-19 Vaccine (3 - 2024- season) 2025 04/17/2021, 03/27/2021 Influenza [...] Vitamin D 25-OH Total 30.7 >30 ng/mL [facility] Comment: Health Based Reference Values*< 20 ng/mL [id number] ng/mL Insufficient> 30 ng/mL Sufficient*Edil JONES. N [...] BLOOD ORDERABLES Final Result Performing Organization Address [facility]/ZIP Co de Phone Number [facility] [address] [place] [phone] * TSH with Reflex to Free T4 (03/02/2025 9:51 AM EDT) TSH reflex Free T4 1.39 0.32 - 4.0 uIU/mL [facility] Blood Venous blood specimen / Unknown 03/02/2025 9:51 AM EDT 03/02/2025 11:14 AM EDT us Quiana Meeks MD LAB BLOOD ORDERABLES Final Result Performing Organization Address City/[facility]/ZIP Co de Phone Number [facility] [address] [place] [phone] * (ABNORMAL) CBC auto differential (03/02/2025 9:51 AM EDT) White Blood Count 4.7(L) 4.8 - 10.8 X10*3/uL [facility] Red Blood Count 4.77 4.20 - 5.50 X10*6/uL [facility] Hemoglobin 13.1 12.0 - 16.0 g/dl [facility] Hematocrit 39.6 37.0 - 47.0 % [facility] Mean Corpuscular Volume 83.0 80.0 - 98.0 fL [facility] Mean Corpuscular Hemoglobin 27.5 27.0 - 33.0 pg [facility] Mean Corpuscular HGB Conc 33.1 31.0 - 35.0 g/dl [facility] Red Cell Distribution Width 12.9 11.0 - 16.0 % [facility] Platelet Count 277 160 - 400 X10*3/uL [facility] Mean Platelet Volume 11.0 9.4 - 12.3 fL [facility] Neutrophils Percent Auto 49.5 45 - 73 % [facility] Imm Gran Pct Auto 0.2 0.0 - 0.4 % [facility] Lymphocytes Percent Auto 37.9 20 - 40 % [facility] Monocytes Percent Auto 7.4 2 - 11 % [facility] Eosinophils Percent Auto 4.4(H) 0 - 4 % [facility] Basophils Percent Auto 0.6 0 - 2 % [facility] NRBC Pct Auto 0.0 0.0 - 0.2 /100WBC [facility] Neutrophils Absolute Auto 2.3 2.0 - 8.3 x10*3/uL [facility] Imm Gran Abs Auto 0.01 0.00 - 0.03 X10*3/uL [facility] Lymphocytes Absolute Auto 1.8 1.2 - 4.9 X10*3/uL [facility] Monocytes Absolute Auto 0.4 0.1 - 1.2 X10*3/uL [facility] Eosinophils Absolute Auto 0.2 0.0 - 0.4 X10*3/uL [facility] Basophils Absolute Auto 0.0 0.0 - 0.2 X10*3/uL [facility] NRBC Abs Auto 0.000 0.0 - 0.012 X10*3/uL [facility] Blood Venous blood specimen / Unknown 03/02/2025 9:51 AM EDT 03/02/2025 11:14 AM EDT Quiana Meeks MD LAB BLOOD ORDERABLES Final Result Performing Organization Address [facility] Co de Phone Number [facility] [address] [place] [phone] * Hepatitis C Antibody with Reflex to HCV, RNA, Quantitative, Real-Time PCR (03/02/2025 9:51 AM EDT) [facility] Hepatitis C Antibody Nonreactive Nonreactive [facility] Comment:Antibodies to HCV no t detected; does not exclude early acuteHCV infection. Blood Venous blood specimen / Unknown 03/02/2025 9:51 AM EDT 03/02/2025 11:14 AM EDT Qiuana Meeks MD LAB BLOOD ORDERABLES Final Result Performing Organization Address [facility] Co de Phone Number [facility] [address] [place] [phone] * Hepatitis B surface antigen, EIA (03/02/2025 9:51 AM EDT) [facility] Hepatitis B Surface Ag Negative Negative [facility] Blood Venous blood specimen / Unknown 03/02/2025 9:51 AM EDT 03/02/2025 11:14 AM EDT Quiana Meeks MD LAB BLOOD ORDERABLES Final Result Performing Organization Address [facility] Co de Phone Number [facility] [address] [place] [phone] * HIV-1/2 Antigen and Antibodies, Fourth Generation, with Reflexes (03/02/2025 9:51 AM EDT) [facility] HIV AB/AG Nonreactive Nonreactive [facility] Comment:HIV-1 p24 Ag and/or HIV-1/HIV-2 Ab not detected.A test result that is nonreactive does not exclude thepossibility of exposure to or infection with HIV-1 and/orHIV-2. Nonreactive results in this assay for individualswith prior exposure to HIV-1 and/or HIV-2 may be due toantigen and antibody levels that are below the limit ofdetection of this assay.The [employer] Combo HIV Ag/Ab Combo assay result andsupplemental assay results should be interpreted inconjunction with the patient's clinical presentation,history and other laboratory results. If the results areinconsistent with clinical evidence, additional testing issuggested to confirm the result. Blood Venous blood specimen / Unknown 03/02/2025 9:51 AM EDT 03/02/2025 11:14 AM EDT us Quiana Meeks MD LAB BLOOD ORDERABLES Final Result Performing Organization Address [facility] Co de Phone Number [facility] [address] [place] [phone] * Hepatitis B Surface Antibody, Qualitative (03/02/2025 9:51 AM EDT) ~Hepatitis B Surface Antibody GRAYZONE Nonreactive [facility] Comment:GRAYZONE: 8.00 mIU/m L TO 11.99 mIU/mLTHE IMMUNE STATUS OF THE INDIVIDUAL SHOULD BE FURTHERASSESSED BY CONSIDERING OTHER FACTORS, SUCH CLINICALSTATUS, FOLLOW-UP TESTING, ASSOCIATED RISK FACTORS, AND THEUSE OF ADDITIONAL DIAGNOSTIC INFORMATION. Blood Venous blood specimen / Unknown 03/02/2025 9:51 AM EDT 03/02/2025 11:14 AM EDT us Quiana Meeks MD LAB BLOOD ORDERABLES Final Result Performing Organization Address [facility] Co de Phone Number [facility] [address] [place] [phone] * Hemoglobin A1c (03/02/2025 9:51 AM EDT) Hemoglobin A1c 5.3 <6.0 % [facility] Comment:Hemoglobin A1C Refer ence Range Adults: 4.8 - 6.0 % Non diabetic: < 6.0 % Goal: < 7.0 %Additional Action Suggested: > 8.0 %Note: Hemoglobin A1c results are invalid for patients with abnormal amounts of HbF. Blood transfusions may impact the HbA1c concentration in the patient sample. Estimated Average Glucose 105 mg/dL [facility] Comment:eAG = Estimated ave rage glucose which is %A1C expressed asaverage glucose, using the formula of the P6J-JggwszhRfagsxl Glucose study (ADAG), Diabetes Care, Vol.31,#8,Feb. 2007 Blood Venous blood specimen / Unknown 03/02/2025 9:51 AM EDT 03/02/2025 11:14 AM EDT us Quiana Meeks MD LAB BLOOD ORDERABLES Final Result [facility] [address] [place] [phone] * (ABNORMAL) Lipid Panel, Standard (03/02/2025 9:51 AM EDT) Triglycerides 122 <150 mg/dL [facility] Comment:Desirable Triglyceri de: less than 150 mg/dLBorderline High Triglyceride 150-199 mg/dLHigh Triglyceride: 200-499 mg/dLVery High Triglyceride: greater than or equal to 5OO mg/dL Cholesterol 156 <200 mg/dL [facility] Comment:Desirable Cholestero l: less than 200 mg/dLBorderline High Cholesterol: 200-239 mg/dLHigh Cholesterol: greater than 239 mg/dL LDL Cholesterol Calculated 93 <100 mg/dL [facility] Comment:Desirable LDL: less than 100 mg/dLNear Optimal/Above Optimal LDL: 110- 129 mg/dLBorderline High LDL: 130-159 mg/dLHigh LDL: 160-189 mg/dLVery High LDL: greater than or equal to 190 mg/dL HDL Cholesterol 39(L) >40 mg/dL [facility] Comment:Desirable HDL: great er than 40 mg/dL Note: This HDL assay may give artificially low results in patients with liver disease. Blood Venous blood specimen / Unknown 03/02/2025 9:51 AM EDT 03/02/2025 11:14 AM EDT us Quiana eMeks MD LAB BLOOD ORDERABLES Final Result [facility] [address] [place] [phone] * (ABNORMAL) Comprehensive Metabolic Panel (03/02/2025 9:51 AM EDT) Sodium 141 135 - 145 mmol/L [facility] Potassium 3.9 3.3 - 5.1 mmol/L [facility] Chloride 107 96 - 108 mmol/L [facility] Carbon Dioxide 28 22 - 29 mmol/L [facility] Anion Gap 10(L) 12 - 20 [facility] Urea Nitrogen (BUN) 12 9 - 16 mg/dL [facility] Creatinine, Serum 1.01 0.5 - 1.4 mg/dL [facility] Estimated Glomerular Filt Rate >60 [facility] Comment:Chronic Kidney Disea se: Estimated GFR < 60 mL/min/[id number] Kidney Disease: Estimated GFR < 15 mL/min/1.73m2 Glucose 97 60 - 115 mg/dL [facility] Calcium 8.6 8.4 - 10.2 mg/dL [facility] Bilirubin, Total 0.8 0.0 - 1.0 mg/dL [facility] Aspartate Amino Transferase 22 5 - 31 U/L [facility] Alanine Aminotransferase 19 0 - 31 U/L [facility] Total Protein 7.1 6.5 - 8.0 g/dL [facility] Albumin Level 4.4 3.5 - 5.0 g/dL [facility] Alkaline Phosphatase 43 39 - 117 U/L [facility] Blood Venous blood specimen / Unknown 03/02/2025 9:51 AM EDT 03/02/2025 11:14 AM EDT us Quiana Meeks MD LAB BLOOD ORDERABLES Final Result [facility] [address] [place] [phone] * XR Shoulder 2+ Views Right (03/02/2025 8:56 AM EDT) Anatomical Region Laterality Modality Upper Extremities, Shoulder Right Radi ographic Imaging 03/02/2025 8:56 AM EDT Narrative 03/02/2025 10:50 AM EDT [address] [address] XRay Report Signed Patient: Alla Huang MR#: [id number] : 1995 Acct:[id number] Age/Sex: 29 / F ADM Date: 03/02/25 Loc: .[facility] Attending Dr: Quiana Meeks MD Ordering Physician: Quiana Hughes MD Date of Service: 03/02/25 Procedure(s): XR shoulder RT min 2V Accession Number(s): [id number] cc: Quiana Hughes MD EXAMINATION: XR SHOULDER, [...] Pritesh Aguilera MD 03/02/2025 10:47 AM EDT Dictated By: Pritesh Aguilera MD Signed By: <Electronically signed by Pritesh Aguilera MD in OV> 03/02/25 1047 DD/ 0856 TD/TT: 03/02/25 0900 Press Machine Operator: Procedure Note Donotuseinterpreter, Image - 03/02/2025 [address] [place] [address] XRay Report Signed Patient: Alla Huang LMR#: [id number] : 1995Acct:[id number] Age/Sex: 29 / FADM Date: 03/02/25 Loc: [facility] Attending Dr: Quiana Meeks MD Ordering Physician: Quiana Hughes MD Date of Service: 03/02/25 Procedure(s): XR shoulder RT min 2V Accession Number(s): [id number] cc: Quiana Hughes MD EXAMINATION: XR SHOULDER, [...] Pritesh Aguilera MD 03/02/2025 10:47 AM EDT Dictated By: Pritesh Aguilera MD Signed By: <Electronically signed by Pritesh Aguilera MD in OV> 03/02/25 1047 DD/ 0856 TD/TT: 03/02/25 09 Press Machine Operator: Quiana Meeks MD IMG XR PROCEDURES Fin al Result from Last 3 Months Insurance [facility] ST[employer] Care Teams Special Delivery Messenger Relationship Specialty Start Date End Date Quiana Hughes MD [address] [place] [phone] PCP - General Family Medicine 10/23/18
--- OUTSIDE RECORDS SUMMARY | 2025-05-31 09:29 | XMS_ITS | Clinical Summary ---
Author Organization [facility] it[facility] Address [address] [place] [address] Care Team Providers Care Horologist Apprentice Name Role Phone Unavailable Primary Care Provider [...]
== END 2025-05-31 09:39 | disposition home or self-care (01) ==
LOC: HO.HCS 08:53
PROVIDERS: PCP Internal Medicine; Visit Provider Internal Medicine Cardiovascular Disease
DX: R00.2 Palpitations (principal)
CPT/HCPCS: 93010; 99203

== ENCOUNTER → 2025-05-31 08:53 | Outpatient (BNVA) | payer MEDICAID, SELFPAY | PROVIDERS: PCP Internal Medicine; Visit Provider Internal Medicine Cardiovascular Disease | DX: R00.2 Palpitations (principal); I10 Essential (primary) hypertension; Z82.49 Family history of ischemic heart disease and other diseases of the circulatory system | CPT/HCPCS: 93005; 99202 ==

== ENCOUNTER → 2025-07-13 09:55 | Outpatient (REF) | payer MEDICAID, SELFPAY ==
--- NOTE | 2025-07-13 09:59 | CA_ITS ---
Transthoracic Echocardiogram Patient (Last, First, Middle): Alla Huang L Gender: Female Date of : 1995 Age: 30 Procedure Date: 07/13/2025 Procedure Type: Transthoracic Echocardiogram Location: OP Height: 170.18 cm Weight: 110.68 kg BSA: 2.20 m2 Heart Rate: bpm BP: 118 / 78 mmHg Top Cleaner: TO Referring MD: Jeovanny Leach MD It Specialist: Jeovanny Leach MD Symptoms: R00.2 - Palpitations Study Quality: Adequate w contrast ECG Rhythm: Sinus Conclusions: - Normal study Findings Procedure Information Contrast agent, definity, is being given per protocol without apparent complications. Left Ventricle Normal left ventricular size, thickness, and systolic function. The visually estimated ejection fraction is between 55-60%. Diastolic function is normal for age. Right Ventricle Normal right ventricular cavity size and systolic function. Atria Both atria are normal in size. There is no evidence of interatrial shunt. Aortic Valve Normal aortic valve structure and function. There is no aortic valve stenosis. There is no aortic valve regurgitation. Mitral Valve Normal mitral valve structure and function. There is trace mitral valve regurgitation. There is no mitral valve stenosis. Pulmonic Valve The pulmonic valve is likely normal. There is trace pulmonic valve regurgitation. Tricuspid Valve Normal tricuspid valve structure. There is trace tricuspid valve regurgitation. The right ventricular systolic pressure is normal. The right ventricular systolic pressure is 12 mmHg. Normal right atrial pressure. There is no evidence of pulmonary hypertension. Great Vessels All visible segments of the aorta are normal in size. The pulmonary artery was not well visualized. Venous The inferior vena cava is normal in size and collapses greater than 50% with inspiration. Pericardium/Pleural There is no evidence of pericardial effusion. Prior Study Comparison No prior study available for comparison. Measurements 2D Linear Measurements IVSd: 0.93 0.6-0.9/0.6-1.0 cm LVIDd: 4.40 3.9-5.3/4.2-5.9 cm LVIDd Index: 2.00 2.4-3.2/2.2-3.1 cm/m2 LVIDs: 2.73 2.0-3.6 cm LVPWd: 0.88 0.7-1.1 cm LA Diam: 3.30 2.7-3.8/3.0-4.0 cm LAIDs Index: 1.50 1.5-2.3 cm/m2 LV Mass: 160.35 67-162/88-224 g LV Mass Index: 72.89 43-95/49-115 g/m2 LVOT Diam: 2.30 3.0+(-)1.3 cm 2D Systolic Function EF 4C: 56.80 >55% EF 2C: 64.20 >55% EF BiP: 57.70 >55% Mitral Valve MV Pk E: 0.62 MV PK A: 0.37 MV Decel Time: 99.00 E/A: 1.70 E'Lateral: 15.10 E'Medial: 10.90 E/E' Med: 5.70 E/E' Lat: 4.10 PHT: 29.00 MVA PHT: 7.59 Decel Castro: 6.27 Aortic Valve AoV Pk Kyle: 1.24 AoV Mn Kyle: 0.90 AoV VTI: 0.25 AoV Pk Grad: 6.00 Aov Mn Grad: 4.00 JULIÁN Cont.VTI: 3.30 LVOT LVOT Pk Kyle: 1.03 LVOT Mn Kyle: 0.69 LVOT VTI: 0.20 LVOT Pk Grad: 4.00 LVOT Mn Grad: 2.00 LVOT Diam: 2.30 LVOT Area: 4.15 Diastolic Function MV Pk E: 0.62 MV Pk A: 0.37 E/A: 1.70 E'Medial: 10.90 E/E' Med: 5.70 E' Laterial: 15.10 E/E' Lat: 4.10 Right Ventricle TAPSE (mm): 20.70 TVS' Kyle: 10.80 Tricuspid Valve TR Pk Kyle: 1.47 TR Pk Grad: 9.00 RA Press: 3.00 RVSP: 12.00 Great Vessels Aorta Sinus of Valsalva: 2.93 2.0-3.5 cm Ao Asc: 2.90 2.1-3.4 cm Updated in Other Vendor System with Status of Final Jeovanny Leach MD electronically signed on 07/13/2025 1:01:18 PM with status of Final
--- OUTSIDE RECORDS SUMMARY | 2025-07-13 11:54 | XMS_ITS | Clinical Summary ---
Author Organization [employer] Address [address] [place] [address] Care Team Providers Care Implementation Lead Name Role Phone Quiana Hughes MD Primary Care Provide r Allergies No known active allergies Medications Vitamin D High Potency 25 MCG (1000 UT) capsuleIndicatio ns:Vitamin D insufficiency TAKE ONE CAPSULE BY MOUTH EVERY DAY 90 capsule 1 07/31/19 23 Active fluticasone (Flonase) 50 MCG/ACT nasal sprayIndications :Subacute maxillary sinusitis Administer 1 spray into each nostril in the morning. 16 g 10/15/19 23 Active cetirizine (ZyrTEC) 10 MG tabletIndication s:Subacute maxillary sinusitis Take 1 tablet (10 mg) by mouth in the morning. 30 tablet 10/15/19 23 Active omeprazole (PriLOSEC) [address] capsuleIndicatio ns:Dyspepsia TAKE 1 CAPSULE BY MOUTH EVERY DAY BEFORE MEALS 90 capsule 3 06/15/20 25 Active omeprazole (PriLOSEC) [address] capsuleIndicatio ns:Dyspepsia TAKE 1 CAPSULE BY MOUTH EVERY DAY BEFORE MEALS 30 capsule 2 02/29/20 25 2024 Discontinued(R eorder (will not trigger notification to Pharmacy)) Active Problems Problem Noted Date Diagnosed Date [...] Encounters Date Type Department Care Team Description 06/21/2025 Patient Outreach [facility] [address] [place] [phone] Quiana Hughes MD Pre-visit Planning (ERROR ) 04/27/2025 10:30 AM EDT Telemedicine [facility] [address] [place] [phone] Quiana Hughes MD Chronic right shoulder pain; Dietary counseling; Exercise counseling 04/26/2025 Telephone [facility] [address] [place] [phone] Quiana Hughes MD Chart Prep 04/20/2025 Travel from Last 3 Months Social History [...] the past 12 months, has t he [place] [employer], gas, oil or water company threatened to [...] Name Priority Date/Time Associated Diagnosis Comments HEPATITIS C AB W/REFL TO HCV RNA, QN, PCR Routine 03/02/2025 9:51 AM EDT Encounter for preventive care HIV 1/2 ANTIGEN/ANTIBODY, FOURTH GENERATION W/RFL Routine 03/02/2025 9:51 AM EDT Encounter for preventive care LIPID PANEL, STANDARD Routine 03/02/2025 9:51 AM EDT Encounter for preventive care from Last 3 Months or Most Recently Relevant to Health Maintenance Results * Hepatitis C Antibody with Reflex to HCV, RNA, Quantitative, Real-Time PCR (03/02/2025 9:51 AM EDT) Hepatitis C Antibody Nonreactive Nonreactive [facility] Comment:Antibodies to HCV no t detected; does not exclude early acuteHCV infection. Blood Venous blood specimen / Unknown 03/02/2025 9:51 AM EDT 03/02/2025 11:14 AM EDT us Quiana Meeks MD LAB BLOOD ORDERABLES Final Result [facility] [address] [place] [phone] * HIV-1/2 Antigen and Antibodies, Fourth Generation, with Reflexes (03/02/2025 9:51 AM EDT) Pathologist [facility] [place] HIV AB/AG Nonreactive Nonreactive [facility] Comment:HIV-1 p24 Ag and/or HIV-1/HIV-2 Ab not detected.A test result that is nonreactive does not exclude thepossibility of exposure to or infection with HIV-1 and/orHIV-2. Nonreactive results in this assay for individualswith prior exposure to HIV-1 and/or HIV-2 may be due toantigen and antibody levels that are below the limit ofdetection of this assay.The [employer]yl[employer]oup[employer] HIV Ag/Ab Combo assay result andsupplemental assay results should be interpreted inconjunction with the patient's clinical presentation,history and other laboratory results. If the results areinconsistent with clinical evidence, additional testing issuggested to confirm the result. Blood Venous blood specimen / Unknown 03/02/2025 9:51 AM EDT 03/02/2025 11:14 AM EDT us Quiana Meeks MD LAB BLOOD ORDERABLES Final Result Performing Organization Address [facility] Co de Phone Number [facility] [address] [place] [address] [phone] * (ABNORMAL) Lipid Panel, Standard (03/02/2025 9:51 AM EDT) Triglycerides 122 <150 mg/dL [facility] Comment:Desirable Triglyceri de: less than 150 mg/dLBorderline High Triglyceride 150-199 mg/dLHigh Triglyceride: 200-499 mg/dLVery High Triglyceride: greater than or equal to 5OO mg/dL Cholesterol 156 <200 mg/dL [facility] Comment:Desirable Cholestero l: less than 200 mg/dLBorderline High Cholesterol: 200-239 mg/dLHigh Cholesterol: greater than 239 mg/dL LDL Cholesterol Calculated 93 <100 mg/dL [facility] Comment:Desirable LDL: less than 100 mg/dLNear Optimal/Above Optimal LDL: 110- 129 mg/dLBorderline High LDL: 130-159 mg/dLHigh LDL: 160-189 mg/dLVery High LDL: greater than or equal to 190 mg/dL HDL Cholesterol 39(L) >40 mg/dL [facility] Comment:Desirable HDL: great er than 40 mg/dL Note: This HDL assay may give artificially low results in patients with liver disease. Blood Venous blood specimen / Unknown 03/02/2025 9:51 AM EDT 03/02/2025 11:14 AM EDT us Quiana Meeks MD LAB BLOOD ORDERABLES Final Result Performing Organization Address [facility]/ZIP Co de Phone Number [facility] [address] [place] [phone] from Last 3 Months or Most Recently Relevant to Health Maintenance Insurance [facility] STANDARD Care Teams Implementation Lead Relationship Specialty Start Date End Date Quiana Hughes MD [address] [place] [address] PCP - General Family Medicine 10/23/18
--- OUTSIDE RECORDS SUMMARY | 2025-07-13 11:54 | XMS_ITS | Clinical Summary ---
Author Organization [facility] ity Address [address] [place] [address] Care Team Providers Care Engagement Mgr Name Role Phone Unavailable Primary Care Provider [...] on file Sexual Orientation Not on file Plan of Treatment Health Maintenance Due Date Last Done Comments DTaP,Tdap,and Td Vaccines (1 - Tdap) 2012 Hepatitis B Vaccines (1 of 3 - 19+ 3-dose series) 2012 Cervical Cancer Screening: P ap Smear 2014 HPV Vaccines (1 - 3-dose SCD M series) 2020 Depression Screening 07/28/2024 COVID-19 Vaccine ( - 2024-2 6 season) 2025 Influenza Vaccine (#1) 2025 RSV [...]
== END ==
LOC: HO.CARD 09:55
PROVIDERS: PCP Internal Medicine; Visit Provider Internal Medicine Cardiovascular Disease
DX: R00.2 Palpitations (principal)
CPT/HCPCS: 93306; Q9957

== ENCOUNTER → 2025-07-13 09:59 | Outpatient (BNV) | payer MEDICAID, SELFPAY | PROVIDERS: PCP Internal Medicine; Visit Provider Internal Medicine Cardiovascular Disease | DX: R00.2 Palpitations (principal) | CPT/HCPCS: 93306 ==